=== PATIENT | male | born 1970 | race Caucasian/White ===

== ENCOUNTER 2022-10-07 09:11 | Emergency (ER) | payer OTHER ==
[~2022-10-07] VITALS: Ht 180.3 cm; Wt 108.9 kg
[~2022-10-07 09:11] MED LIST: AMOCLA875 PO; AMOX500 PO; Bactrim Ds Tab1 EACH PO; CIPR500 PO; CYCL10 PO; DIPATR PO; HYDACE5 PO; IBUP400 PO; IBUP600 PO; IBUP800 PO; Keflex500 MG PO; LOPE2C; MECL25 PO; NAPR500 PO; ONDA4 PO; ONDA8ODT MM; PROM25 PO
== END 2022-10-07 11:00 | disposition home or self-care (01) ==
LOC: ER 09:11
DX: S05.01XA Injury of conjunctiva and corneal abrasion without foreign body, right eye, initial encounter (principal); Z87.891 Personal history of nicotine dependence; W45.8XXA Other foreign body or object entering through skin, initial encounter
CPT/HCPCS: 70480; A9270